=== PATIENT | male | born 1960 | race Hispanic/Latino ===

== ENCOUNTER 2019-07-14 09:38 | Outpatient (CLI) | payer OTHER, SELFPAY ==
[2019-07-14] VITALS (10 sets, daily range): BP systolic 120–154; BP diastolic 76–97; PULSE 64–75; RESP 16–20; O2SAT 95–97
--- NOTE | 2019-07-14 09:40 | DI.RAD.S_ITS ---
PROCEDURE: PAIN L/SI FACET INJ/BLK 1STL INDICATIONS: SPONDYLOSIS FINDINGS: Fluoroscopic spot filming was performed to verify placement of spinal needles at the right L4, L5, S1 medial branch nerve root level(s), as labeled on the films. Appropriate location(s) of the needle tip(s) was confirmed by injection of iodinated contrast. IMPRESSION: Successful localization for medial branch block on the right at the L4, L5, and S1 nerve root levels. Dictated by: Pollo Neal M.D. on 07/14/2019 at 13:02 Approved by: Pollo Neal M.D. on 07/14/2019 at 13:03
[2019-07-14] MEDS: fentaNYL 100 MCG/2 ML INJ 50 MCG IV (10:36)
[2019-07-14] MEDS: MIDAZOLAM 5 MG/5 ML VIAL IV (10:36)
[2019-07-14] MEDS: IOPAMIDOL 15 ML VIAL 3 ML INJ (10:45)
[2019-07-14] MEDS: BUPIVACAINE 0.5% (PF) VIAL 2 ML INJ (10:45)
[2019-07-14] MEDS: LIDOCAINE 1% 20 ML 10 ML INJ (10:45)
[2019-07-14] MEDS: BETAMETHASONE 30 MG/5 ML MDV 12 MG INJ (10:45)
--- NOTE | 2019-07-14 10:46 | PC.NURSE ---
ASSISTING PT OFF TABLE AND TRANSPORTING TO POST PROC AREA IN STABLE CONDITION. PASSING RN CARE OF PT OFF TO CORNELIO Rodriguez RN
--- NOTE | 2019-07-14 10:53 | PM.PROC.1 ---
Procedures Date/Time Date of procedure: 07/14/19 Time of procedure: 10:53 General Procedure description: POST OP DIAGNOSIS 1. FACET ARTHROPATHY PROCEDURES 1. Right L4, L5 and S1 MB BLOCKS PHYSICIAN: Riki Jones DO INDICATIONS Joel is referred by Dr. Sunshine for treatment of Right Axial LBP. DESCRIPTION OF PROCEDURE Fluoroscopically guided, contrast-controlled right L4, L5 and S1 medial branch blocks with 0.5cc of 0.5% Marcaine. Following review of allergy and review of potential side effects and complications, including, but not necessarily limited to, infection, allergic reaction, local tissue breakdown, nerve injury, paralysis, stroke and possible , the patient indicated that the patient understood and agreed to proceed. An informed consent document was signed by the patient, witnessed by a nurse, and placed in the patient's chart. After review of previous anaesthesic history and IV conscious sedation the patient was deemed safe to proceed with todays procedure with IV conscious sedation as ASA class II designation. Safety time-out was performed to confirm patient ID, procedure to be performed and site of procedure. IV sedation was accomplished with a combination of 3mg of Versed and 50mcg of Fentanyl was administered by the RN after DO order, titrated to patient comfort during the course of the procedure while the patient remained responsive to all verbal commands In the prone position, following sterile prep and drape of the lumbar region, the right L4, L5 and S1 anatomical location of the medial branch of the dorsal ramus was identified fluoroscopically. Subsequently an anesthetic skin wheal using 1% lidocaine solution was initiated at each of the anatomical spots. Subsequently then a 22-gauge 3.5-inch spinal needle was atraumatically introduced and advanced under fluoroscopic guidance at each of the corresponding sites at the right L4, L5 and S1 MB. After negative aspiration, 0.2 cc of Isovue 200 was injected, confirming placement without vascular or intrathecal uptake. Subsequently then 0.5 cc of 0.5% Marcaine solution was injected at each of the corresponding sites at the right L4, L5 and S1 medial branch locations. The patient tolerated the procedure well without signs or symptoms of complications. The procedure tolerated the procedure well without signs or symptoms of complications prior to transfer to the recovery area continued monitoring without incident. Post-procedure, the patient was monitored initiating provocative activities to measure the amount of relief from block of the facetogenic pain. The patient reported a VAS of 7 prior to the procedure and a post-procedure VAS of 6. Given the minimal change immediately post procedure it will be interesting to see his intermediate response. If the response continues to be underwhelming and given his central back and left leg symptoms, he may benefit from a left L4/5 TFESI upon re-evaluation. It has been a pleasure to assist in the diagnostic and therapeutic care of your patient. Total Fluoroscopy Time: 24.8 seconds Total Conscious Sedation Time: 24min POST OP INSTRUCTIONS The patient was provided with a Pain Log to complete over the next several hours and subsequent days prior to the patient's follow up with the ordering physician. If the patient has academic coordinator relief to the solution applied, then they may be a candidate for medial branch rhizotomy. The patient is aware, was provided, once again, with a Pain Log and will follow up with the referring physician for review and clinical correlation Riki Jones DO Complications: none
[2019-07-14] MEDS: HYDROCODONE/ACET 5/325 TABLET 1 TAB PO (11:42)
--- NOTE | 2019-07-14 12:18 | PC.NURSE ---
UNABLE TO REASSESS PAIN AFTER [facility] ADMINISTRATION DUE TO PT BEING DISCHARGED TO HOME WHILE I WAS IN PROCEDURE. NURSING CARE BEING PROVIDED BY CORNELIO Rodriguez RN AT TIME OF DISCHARGE.
--- NOTE | 2019-07-14 14:04 | PC.NURSE ---
Discharge note: Patient arrived for post procedure monitoring at 1054. Pain level 8/10 on arrival, sharp shooting down spine. Denied any unusual numbness or tingling to lower extremities. Repositioned for comfort with no relief. Pain level increased to a 9/10. Up to bathroom to void at 1120. Gait steady. Pain level 9/[address] Jones. Medicated with tablet of pain med. VSS stable at discharge. Pain level continues at 9/10. Patient wants to go home to lay down. Stable for discharge to home with daughter. Wheel chair to car.
== END 2019-07-14 11:50 ==
PROVIDERS: Family Provider Family Medicine; PCP Family Medicine; Visit Provider Physical Medicine & Rehabilitation
DX: M47.817 Spondylosis without myelopathy or radiculopathy, lumbosacral region (principal); M47.816 Spondylosis without myelopathy or radiculopathy, lumbar region
CPT/HCPCS: 64493; 64494; 99152; J0702; J2250; J3010

== ENCOUNTER 2019-09-04 14:42 | Outpatient (CLI) | payer OTHER, SELFPAY ==
--- NOTE | 2019-09-04 14:45 | DI.RAD.S_ITS ---
PROCEDURE: PAIN L/S TRANSFORAMINAL INJECT INDICATIONS: SPONDYLSOIS FINDINGS: Fluoroscopic spot filming was performed to verify placement of spinal needles at the left L4-L5 neural foraminal level(s), as labeled on the films. Appropriate location(s) of the needle tip(s) was confirmed by injection of iodinated contrast. IMPRESSION: Successful left L4-L5 neural foraminal needle tip localization for perineural epidural steroid injection Dictated by: Pollo Neal M.D. on 09/04/2019 at 16:50 Approved by: Pollo Neal M.D. on 09/04/2019 at 16:51
[2019-09-04 15:00] VITALS: BP 125/78; PULSE 72; RESP 16; TEMP 36.3; O2SAT 99
[2019-09-04 15:31] VITALS: BP 134/87; PULSE 66; RESP 16; O2SAT 99
--- NOTE | 2019-09-04 15:32 | PC.NURSE ---
NO SEDATION MEDS GIVEN AT BEGINNING OF PROCEDURE.
[2019-09-04 15:36] VITALS: BP 125/92; PULSE 68; RESP 16; O2SAT 100
[2019-09-04] MEDS: IOPAMIDOL 15 ML VIAL 3 ML INJ (15:40)
[2019-09-04] MEDS: BETAMETHASONE 30 MG/5 ML MDV 6 MG INJ (15:41)
[2019-09-04] MEDS: DEXAMETHASONE 10 MG/ML VIAL 20 MG INJ (15:41)
[2019-09-04] MEDS: BUPIVACAINE 0.5% (PF) VIAL 2 ML INJ (15:41)
[2019-09-04 15:42] VITALS: BP 114/78; PULSE 64; RESP 16; O2SAT 100
--- NOTE | 2019-09-04 15:44 | PC.NURSE ---
NO SEDATION MEDS GIVEN. ASSISTING PT OFF TABLE AND TRANSPORTING TO POST PROC AREA IN STABLE CONDITION. PASSING RN CARE OF PT TO CELINA Kaba RN. NO MEDS GIVEN BY THIS RN. ALL MEDS GIVEN PREPPED AND ADMINISTERED BY DR. AKERS.
--- NOTE | 2019-09-04 15:49 | P.PCN_ITS ---
Procedures Date/Time Date of procedure: 09/04/19 Time of procedure: 15:49 General Procedure description: PREOP DIAGNOSIS 1. FORMAINAL STENOSIS WITH LE SYMPTOMS POST OP DIAGNOSIS 1. FORMAINAL STENOSIS WITH LE SYMPTOMS PROCEDURES 1. FLUOROSCOPICALLY GUIDED CONTRAST CONTROLLED TRANSFORAMINAL EPIDURAL STEROID INJECTION - LEFT L4/5 PHYSICIAN: Riki Jones DO INDICATIONS: Joel is referred by Dr. Sunshine for treatment of Foraminal Stenosis with Left LE Symptoms FINDINGS Foraminal Nerve Root Compression secondary to disc disease and facet hypertrophy DESCRIPTION OF PROCEDURE: Following review of allergy and review of potential side effects and complications, including, but not necessarily limited to, infection, allergic reaction, local tissue breakdown, stroke, temporary or permanent nerve injury, paralysis, and possible , the patient indicated that the patient understood and agreed to proceed. An informed consent document was signed by the patient, witnessed by a nurse, and placed in the patient's chart. Additionally, other treatment options including medications, modalities, and physical therapy were reviewed with the patient. After review of previous anaesthesic history and IV conscious sedation the patie nt was deemed safe to proceed with todays procedure with IV conscious sedation as ASA class II designation. Safety time-out was performed to confirm patient ID, procedure to be performed and site of procedure. IV sedation was deemed unnecessary and thus not administered by the RN after DO order, titrated to patient comfort during the course of the procedure while the patient remained responsive to all verbal commands. In the prone position following sterile prep and drape of the lumbar region, the left L4/5 posterior neuroforamen was identified fluoroscopically. The skin was anesthetized via a 25-gauge 1.5-inch needle with 1% lidocaine solution. At this point, a 25-gauge 3.5-inch spinal needle was atraumatically introduced and advanced under fluoroscopic guidance through the posterior left L4/5 neuroforamen to approximately the anterior aspect of the canal. Depth was confirmed on lateral view. Following negative aspiration, injection of approximately 1.5cc of Isovue 200 under live fluoroscopy in the AP view confirmed excellent flow along the nerve root, into the epidural space without vascular or intrathecal uptake observed. Radiological data, including multiple fluoroscopic views of the lumbosacral spine, reveal a spinal needle at the left L4/5 posterior neuroforamen. Subsequent views show flow of contrast material flowing superiorly and inferiorly along the nerve root confirming epidural flow. Subsequently, a test dose of 1.5 cc of 1% lidocaine solution was administered and patient was observed for two minutes for signs or symptoms of complications, including abdominal pain, shortness of breath, bilateral upper or lower extremity weakness, nausea and vomiting, prior to steroid injection. At this point, a total of 3cc or 20mg of dexamethasone and 6mg of betamethasone was injected without incident. The procedure tolerated the procedure well without signs or symptoms of complications prior to transfer to the recovery area continued monitoring withou t incident. The patient was then transferred to the recovery area where they were observed for an appropriate time after the injection. The patient reported a VAS score of 7 prior to the procedure and a post- procedure VAS of 0. Total Fluoroscopy Time: 20.9 seconds Total Conscious Sedation Time: 24min POST OP INSTRUCTIONS The patient was provided a Pain Log to continue to record their response to the target-specific procedure prior to follow-up visit with their referring physician. Additionally, specific post-injection care instructions and a contact number to our office were provided if concerns arise regarding possible complications associated with the procedure are suspected. Riki Jones DO Complications: none
[2019-09-04 15:53] VITALS: BP 127/74; PULSE 70; RESP 16; O2SAT 98
== END 2019-09-04 15:58 | disposition home or self-care (01) ==
LOC: RAD 14:44
PROVIDERS: Family Provider Family Medicine; PCP Family Medicine; Visit Provider Physical Medicine & Rehabilitation
DX: M48.061 Spinal stenosis, lumbar region without neurogenic claudication (principal); M51.16 Intervertebral disc disorders with radiculopathy, lumbar region
CPT/HCPCS: 64483; J0702; J1100; J2250; J3010